=== PATIENT | male | born 1960 | race Caucasian/White ===

== ENCOUNTER 2018-06-06 11:21 | Inpatient (IN) | payer BC ==
[~2018-06-06 11:21] MED LIST: SEVOFLURANE 15 MIN; SUCCINYLCHOLINE CHLORIDE 100 MG/5 ML SYG IV
[2018-06-06] MEDS ORDERED: CA CHLORIDE 10% 10 ML SYRINGE (12:17)
[2018-06-06] MEDS ORDERED: HYDROmorphONE 1 MG/5 ML IV SYRINGE IV ×3 (13:00→17:05)
[2018-06-06] MEDS ORDERED: MEPERIDINE 25 MG INJ IV (13:00)
[2018-06-06] MEDS ORDERED: PROCHLORPERAZINE 10 MG INJ IV (13:00)
[2018-06-06] MEDS ORDERED: DIPHENHYDRAMINE 50 MG INJ IV ×2 (13:00→13:30)
[2018-06-06] MEDS ORDERED: FENTAnyl 50 MCG/ML VIAL IV ×3 (13:00)
[2018-06-06] MEDS ORDERED: ONDANSETRON 4 MG INJ IV (13:00)
[2018-06-06] MEDS ORDERED: FENTAnyl 50 MCG/ML VIAL (13:18)
[2018-06-06] MEDS ORDERED: ROCURONIUM 50 MG INJ (13:18)
[2018-06-06] MEDS ORDERED: PROPOFOL 20 ML (13:18)
[2018-06-06] MEDS ORDERED: SUCCINYLCHOLINE CHLORIDE 100 MG/5 ML SYG IV (13:18)
[2018-06-06] MEDS ORDERED: LIDOCAINE 2% (SDV) 5 ML INJ (13:18)
[2018-06-06] MEDS ORDERED: NALOXONE (0.4 MG/ML) INJ IV (13:30)
[2018-06-06] MEDS ORDERED: CEPASTAT LOZENGE MT (13:30)
[2018-06-06] MEDS ORDERED: ACETAMINOPHEN 325 MG TAB PO (13:30)
[2018-06-06] MEDS ORDERED: FAMOTIDINE 20 MG INJ (13:55)
[2018-06-06] MEDS ORDERED: ONDANSETRON 4 MG INJ (13:55)
[2018-06-06] MEDS ORDERED: DEXAMETHASONE 4 MG/ML 1 ML INJ (13:55)
[2018-06-06] MEDS ORDERED: CEFAZOLIN 1 GM INJ (13:55)
[2018-06-06] MEDS: BUPIVACAINE 0.25%/EPI (MDV) 50 ML VIAL INJ (14:07)
[2018-06-06] MEDS: POLYMYXIN/BACITRACIN 1L IRRIG (14:17)
[2018-06-06] MEDS: SURGIFOAM POWDER 1 GM KIT (14:19)
[2018-06-06] MEDS: HEPARIN 1000 UNITS/ML 10 ML INJ (14:19)
[2018-06-06] MEDS: THROMBIN 5000 UNIT VIAL (14:20)
[2018-06-06] MEDS ORDERED: THROMBIN 5000 UNIT VIAL (14:51)
[2018-06-06] MEDS: GELATIN SIZE 100 SPONGE (15:00)
[2018-06-06] MEDS: CA CHLORIDE 10% 10 ML SYRINGE (15:00)
[2018-06-06] MEDS ORDERED: HYDROmorphONE 2 MG/ML SYG (15:03)
[2018-06-06] MEDS: BUPIVACAINE 0.25% (MPF) 30 ML INJ (15:56)
[2018-06-06] MEDS ORDERED: GLYCOPYRROLATE 0.4 MG INJ (16:01)
[2018-06-06] MEDS ORDERED: NEOSTIGMINE 3 MG/3 ML SYRINGE (16:01)
[2018-06-06] MEDS ORDERED: EPHEDrine SULFATE 50 MG/5 ML SYG (16:14)
[2018-06-06] MEDS: HYDROmorphONE 0.2 MG/ML PCA IV (17:07)
[2018-06-06] MEDS: HYDROmorphONE 1 MG/5 ML IV SYRINGE IV (17:26)
[2018-06-06] MEDS: D5W-0.45 NACL + KCL 20 MEQ 1,000 ML IV ×2 (20:35→23:03)
[2018-06-06] MEDS: CEFAZOLIN 1 GM/50 ML (PMX) 50 ML IVPB ×2 (20:36→20:42)
[2018-06-06] MEDS: DIVALPROEX (EC) 125 MG TAB PO (20:40)
[2018-06-06] MEDS: RANITIDINE 150 MG TAB PO (20:41)
[2018-06-06] MEDS: DOCUSATE SODIUM 100 MG CAP PO (20:41)
[2018-06-07] MEDS: CEFAZOLIN 1 GM/50 ML (PMX) 50 ML IVPB (05:08)
[2018-06-07 05:10] LABS: ADD MAN DIFF? NO
[2018-06-07 05:22] LABS: BASOPHILS % 0.1 % (0.0-2.0); EOSINOPHILS % 0.1 % (0.0-7.0); HEMOGLOBIN 13.7 g/dl (14.0-18.0); LYMPHOCYTES # 1.3 10^3/ul (0.8-2.9); LYMPHOCYTES % 14.6 % (15.0-51.0); MEAN CORPUSCULAR HEMOGLOBIN 31.1 pg (29.0-33.0); MEAN CORPUSCULAR HGB CONC 34.3 g/dl (32.0-37.0); MEAN CORPUSCULAR VOLUME 90.9 fl (82.0-101.0); MEAN PLATELET VOLUME 11.5 fl (7.4-10.4); MONOCYTE # 0.7 10^3/ul (0.3-0.9); MONOCYTES % 7.8 % (0.0-11.0); NEUTROPHIL # 6.9 10^3/ul (1.6-7.5); NEUTROPHILS % 77.2 % (39.0-77.0); PLATELET COUNT 110 10^3/UL (140-415); POSITIVE DIFF @See below; RED CELL DISTRIBUTION WIDTH 12.2 % (11.5-14.5)
[2018-06-07 05:40] LABS: ANION GAP 6 (5-13); BLOOD UREA NITROGEN 12 mg/dl (7-20); CALCIUM 8.7 mg/dl (8.4-10.2); CARBON DIOXIDE 26 mmol/L (21-31); CHLORIDE 108 mmol/L (97-110); CREATININE 0.83 mg/dl (0.61-1.24); Estimated GFR > 60 mL/min (>60); GLUCOSE 121 mg/dl (70-220); MAGNESIUM 2.2 mg/dl (1.7-2.5); POTASSIUM 4.3 mmol/L (3.5-5.1); SODIUM 140 mmol/L (135-144)
[2018-06-07] MEDS: D5W-0.45 NACL + KCL 20 MEQ 1,000 ML IV ×2 (07:00→19:09)
[2018-06-07] MEDS: DIVALPROEX (EC) 125 MG TAB PO ×2 (08:37→17:55)
[2018-06-07] MEDS: DOCUSATE SODIUM 100 MG CAP PO ×2 (08:38→21:15)
[2018-06-07] MEDS: HYDROCODONE/APAP (10/325) TAB PO ×4 (10:07→19:22)
[2018-06-07] MEDS: ONDANSETRON 4 MG INJ IV (14:54)
[2018-06-07] MEDS: CYCLOBENZAPRINE 10 MG TAB PO (16:02)
[2018-06-07] MEDS: RANITIDINE 150 MG TAB PO (21:15)
[2018-06-08] MEDS: HYDROCODONE/APAP (10/325) TAB PO ×4 (04:46→23:33)
[2018-06-08] MEDS: D5W-0.45 NACL + KCL 20 MEQ 1,000 ML IV ×2 (05:07→15:09)
[2018-06-08] MEDS: HYDROmorphONE 0.5 MG/0.5 ML SYG IV (06:43)
[2018-06-08] MEDS: ONDANSETRON 4 MG INJ IV ×2 (06:43→19:56)
[2018-06-08] MEDS: DIVALPROEX (EC) 125 MG TAB PO ×2 (07:50→17:55)
[2018-06-08] MEDS: DOCUSATE SODIUM 100 MG CAP PO ×2 (09:27→20:33)
[2018-06-08] MEDS: CYCLOBENZAPRINE 10 MG TAB PO (12:20)
[2018-06-08] MEDS: KETOROLAC 30 MG INJ IV (14:15)
[2018-06-08] MEDS: POLYETHYLENE GLYCOL 17 GM PACKET GTB ×2 (14:18→20:33)
[2018-06-08] MEDS: RANITIDINE 150 MG TAB PO (20:33)
[2018-06-09] MEDS: D5W-0.45 NACL + KCL 20 MEQ 1,000 ML IV ×2 (00:42→11:09)
[2018-06-09] MEDS: HYDROCODONE/APAP (10/325) TAB PO (09:41)
[2018-06-09] MEDS: POLYETHYLENE GLYCOL 17 GM PACKET GTB (09:42)
[2018-06-09] MEDS: DOCUSATE SODIUM 100 MG CAP PO (09:42)
[2018-06-09] MEDS: DIVALPROEX (EC) 125 MG TAB PO ×2 (09:42→17:55)
[2018-06-09] MEDS: BISACODYL 10 MG SUPP PR (12:22)
[2018-06-09] MEDS: AL HYDROX/MG HYDROX/SIMETH 30 ML CUP PO (14:59)
== END 2018-06-09 18:30 | disposition home or self-care (01) | DRG 520 ==
LOC: REC 11:21 → MS1 17:50
PROC: 0SB40ZZ Excision of Lumbosacral Disc, Open Approach (ICD-10-PCS; principal; 2018-06-06 13:00)
PROC: 01NB0ZZ Release Lumbar Nerve, Open Approach (ICD-10-PCS; 2018-06-06 13:00)
PROC: 4A11X4G Monitoring of Peripheral Nervous Electrical Activity, Intraoperative, External Approach (ICD-10-PCS; 2018-06-06 13:00)
DX: M51.17 Intervertebral disc disorders with radiculopathy, lumbosacral region (principal); M48.07 Spinal stenosis, lumbosacral region; M48.061 Spinal stenosis, lumbar region without neurogenic claudication
CPT/HCPCS: 72100; 80048; 83735; 85025; 86999; 88304; 97110; 97116; 97161; 97530